=== PATIENT | female | born 1970 | race Caucasian/White ===

== ENCOUNTER → 2018-10-04 | Outpatient (CLI) | payer OTHER ==
--- NOTE | 2018-10-04 13:22 | P.GSHP ---
History of Present Illness H&P Date: 10/04/18 Chief Complaint: Mammographic abnormality left breast Fidelina is a 48-year-old white female who is status post a routine screening mammogram performed on 6519. Recommendation was for diagnostic left breast mammogram secondary to a faint nodular density centrally in the left breast measuring approximately 3 mm. [place] subsequently [place] [address] as well as an ultrasound of the left breast. The ultrasound did not show any lesion of concern. The nodularity did persist on the 3-D mammogram. The patient's last mammogram was in 2007. The patient has no history of any masses or lumps in her breasts. She has no history of any infection or trauma to her breast. She is not complaining of any pain in her breast. She is not complaining of any nipple discharge. Family history: 1. sister cervical cancer 2. father: kidney caner 3. paternal grandfather lung cancer Hormonal history: Menarche:12 , breast fed: none, first born at 17 periods: regular control pills: 1 year Hormones:none Surgical history: 1. Cholecystectomy 2. Emergency 3. Tubal ligation 4. Bilateral carpal tunnel Medical History: 1. CHF, follows with DR. Oh 2. TIA related to a migraine Social history: Smoke: Negative, stopped 4 years ago did smoke 1/2 PPD for 20 years Alcohol: Once a month Drugs: Negative - Constitutional Comment: hot flashes Constitutional: Reports sweats - EENT Comment: wears glasses Ears: deny: decreased hearing, tinnitus Ears, nose, mouth and throat: Reports headache - Breasts Breasts: bilateral: as per HPI - Cardiovascular Comment: CHF - Respiratory Respiratory: Denies cough, Denies 7 - Gastrointestinal Gastrointestinal: Denies abdominal pain, Denies diarrhea, Denies nausea, Denies vomiting - Genitourinary (Female) Genitourinary: Reports kidney stones, Denies dysuria, Denies hematuria - Menstruation Menstruation: Reports period normal - Musculoskeletal Musculoskeletal: Denies myalgias - Integumentary Integumentary: Denies pruritus, Denies rash - Neurological Comment: TIA Neurological: Denies numbness, Denies weakness - Psychiatric Psychiatric: Denies anxiety, Denies depression - Endocrine Endocrine: Reports weight change, Denies fatigue - Hematologic/Lymphatic Comment: none - Allergic/Immunologic Allergic/Immunologic: Reports as per HPI Past Medical History Past Medical History: CVA/TIA Additional Past Medical History / Comment(s): migraines History of Any Multi-Drug Resistant Organisms: None Reported Past Surgical History: Section, Cholecystectomy, Orthopedic Surgery, Tubal Ligation Additional Past Surgical History / Comment(s): Carpal Tunnel release bilaterally Past Anesthesia/Blood Transfusion Reactions: No Reported Reaction Past Psychological History: No Psychological Hx Reported Smoking Status: Former smoker Past Alcohol Use History: None Reported Past Drug Use History: None Reported Medications and Allergies Home Medications Medication Instructions Recorded Confirmed Type Carvedilol [Coreg] 12.5 mg PO BID-W/MEALS #180 tab 02/17/15 10/04/18 Rx Furosemide [Lasix] 20 mg PO DAILY #90 tab 02/17/15 10/04/18 Rx Nitroglycerin Sl Tabs [Nitrostat] 0.4 mg SUBLINGUAL Q5M PRN #25 tab 02/17/15 10/04/18 Rx Losartan Potassium 100 mg PO DAILY 10/04/18 10/04/18 History Omeprazole [PriLOSEC] 20 mg PO DAILY 10/04/18 10/04/18 History Spironolactone [Aldactone] 25 mg PO DAILY PRN 10/04/18 10/04/18 History Allergies Allergy/AdvReac Type Severity Reaction Status Date / Time aspirin AdvReac Nausea & Verified 02/13/15 13:25 Vomiting Surgical - Exam Vital Signs Temp Pulse Resp BP Pulse Ox 98.6 F 75 18 123/82 96 10/04/18 12:38 10/04/18 12:38 10/04/18 12:38 10/04/18 12:38 10/04/18 12:38 BMI 45.5 - General obese - Eyes normal ocular movement - ENT no hearing loss - Neck no masses, trachea midline - Respiratory normal respiratory effort, clear to auscultation - Cardiovascular Rhythm: regular Heart Sounds: normal: S1, S2 - Abdomen Abdomen: soft, non tender, no guarding, no rigid, no rebound - Integumentary normal turgor - Neurologic no disoriented, no combative - Musculoskeletal normal gait - Psychiatric oriented to time, oriented to person, oriented to place, speech is normal, memory intact Breast examination: Right breast: Multi-positional exam fibrocystic breast changes, no dominant mass or nodule of concern Right axilla: No adenopathy of concern Left breast: Multi-positional exam no dominant mass or nodule of concern Left axilla: No adenopathy of concern Results Mammogram and ultrasound results reviewed Assessment and Plan Assessment: Impression: 1. CHF, follows with DR. Oh 2. TIA related to a migraine 3. Mammographic abnormality left breast 4. Fibrocystic breast changes 5. Family history of cancer Plan: 1. 3-D stereotactic core biopsy at [facility] left breast 2. Follow-up after biopsy 3. Medical management of medical conditions Cc:
== END ==
DX: Z53.9 Procedure and treatment not carried out, unspecified reason (principal)

== ENCOUNTER → 2018-10-17 | Outpatient (CLI) | payer OTHER ==
[2018-10-17 09:56] VITALS: BP 142/91; PULSE 68; RESP 18; TEMP 98.2; BMI 45.5
--- NOTE | 2018-10-17 10:27 | P.PN ---
Subjective Progress Note Date: 10/17/18 Chief Complaint: Mammographic abnormality left breast Fidelina is a 48-year-old white female who is status post a routine screening mammogram performed on 6519. Recommendation was for diagnostic left breast mammogram secondary for a faint nodular density centrally in the left breast measuring approximately 3 mm. She subsequently [place] [address] as well as an ultrasound of the left breast. The ultrasound did not show any lesion of concern. The nodularity did persist on the 3-D mammogram. The patient's last mammogram was in 2007. The patient has no history of any masses or lumps in her breasts. She has no history of any infection or trauma to her breast. She is not complaining of any pain in her breast. She is not complaining of any nipple discharge. The patient had a stereotactic core biopsy performed and 8119. Pathology revealed mild fibrocystic change, no malignancy was identified in the material. Although the dictated report on the stereotactic biopsy specimen indicated calcifications were present medications were seen in the biopsy material pathologically. The needle core biopsies were composed primarily of adipose tissue was in the possibility of an intramammary lipoma. The patient has no complaints related to the procedure. Family history: 1. sister cervical cancer 2. father: kidney caner 3. paternal grandfather lung cancer Hormonal history: Menarche:12 , breast fed: none, first born at 17 periods: regular control pills: 1 year Hormones:none Surgical history: 1. Cholecystectomy 2. Emergency 3. Tubal ligation 4. Bilateral carpal tunnel Medical History: 1. CHF, follows with DR. Oh 2. TIA related to a migraine Social history: Smoke: Negative, stopped 4 years ago did smoke 1/2 PPD for 20 years Alcohol: Once a month Drugs: Negative - Constitutional Comment: hot flashes Constitutional: Reports sweats - EENT Comment: wears glasses Ears: deny: decreased hearing, tinnitus Ears, nose, mouth and throat: Reports headache - Breasts Breasts: bilateral: as per HPI - Cardiovascular Comment: CHF - Respiratory Respiratory: Denies cough, Denies SOB - Gastrointestinal Gastrointestinal: Denies abdominal pain, Denies diarrhea, Denies nausea, Denies vomiting - Genitourinary (Female) Genitourinary: Reports kidney stones, Denies dysuria, Denies hematuria - Menstruation Menstruation: Reports period normal - Musculoskeletal Musculoskeletal: Denies myalgias - Integumentary Integumentary: Denies pruritus, Denies rash - Neurological Comment: TIA Neurological: Denies numbness, Denies weakness - Psychiatric Psychiatric: Denies anxiety, Denies depression - Endocrine Endocrine: Reports weight change, Denies fatigue - Hematologic/Lymphatic Comment: none - Allergic/Immunologic Allergic/Immunologic: Reports as per HPI Past Medical History Past Medical History: CVA/TIA Additional Past Medical History / Comment(s): migraines History of Any Multi-Drug Resistant Organisms: None Reported Past Surgical History: Section, Cholecystectomy, Orthopedic Surgery, Tubal Ligation Additional Past Surgical History / Comment(s): Carpal Tunnel release bilaterally Past Anesthesia/Blood Transfusion Reactions: No Reported Reaction Past Psychological History: No Psychological Hx Reported Smoking Status: Former smoker Past Alcohol Use History: None Reported Past Drug Use History: None Reported Objective - Vital Signs Vital signs: Vital Signs Temp 98.2 F 10/17/18 09:53 Pulse 68 10/17/18 09:53 Resp 18 10/17/18 09:53 BP 142/91 10/17/18 09:53 Pulse Ox 97 10/17/18 09:53 Intake & Output 10/16/18 10/17/18 10/17/18 18:59 06:59 18:59 Weight 112.945 kg - Exam BMI 45.5 - Constitutional General appearance: Present: obese - EENT Eyes: Present: EOMI ENT: Present: hearing grossly normal - Neck Neck: Present: normal ROM - Respiratory Respiratory: bilateral: CTA - Cardiovascular Rhythm: regular Heart sounds: normal: S1, S2 - Integumentary Integumentary: Present: normal turgor - Musculoskeletal Musculoskeletal: Present: gait normal - Psychiatric Psychiatric: Present: A&O x's 3, appropriate affect, intact judgment & insight - Additional findings Additional findings: Left breast: Biopsy site clean and dry Evidence of hematoma No ecchymosis or infection Assessment and Plan Assessment: Impression: 1. CHF, follows with DR. Oh 2. TIA related to a migraine 3. Status post aortic a biopsy left breast, findings benign however no microcalcifications were seen pathologically although the reported to be in the biopsy specimen from the stereo biopsy report 3. Patient with no complications related to the biopsy Plan: 1. Review radiographs with radiologist 2. Depending on results after review with radiologist we did recommend needle local excisional biopsy of the area which was noted as no calcium was identified in the pathologic specimen repeat left breast mammogram in 4 months with physician exam at that time 3. Patient is anything of concern should call us immediately 4. Medical management of medical conditions CC: Dr. Dillon
== END | disposition home or self-care (01) ==
LOC: WWCWWP 09:44
PROVIDERS: ATTEND Surgery
DX: Z53.9 Procedure and treatment not carried out, unspecified reason (principal)

== ENCOUNTER → 2020-12-25 | Outpatient (CLI) | payer OTHER ==
[2020-12-25 18:24] LABS: African American GFR (CKD) 117.8 (60.0-200.0); Albumin 4.2 g/dL (3.8-4.9); Albumin/Globulin Ratio 1.83 (1.60-3.17); Anion Gap 14.2 mmol/L (4.00-12.00); BUN/Creat Ratio 13.39 Ratio (12.00-20.00); Calcium 8.9 mg/dL (8.7-10.3); Chol/HDL Ratio 2.77 Ratio; Globulin 2.3 g/dL (1.6-3.3); HDL Cholesterol 49.8 mg/dL (40.00-60.00); LDL Cholesterol,Calculated 69.1 mg/dL (0.0-131.0); Non-African American GFR(CKD) 101.7 (60.0-200.0); Total Bilirubin 0.4 mg/dL (0.30-1.20); Total Protein 6.5 g/dL (6.2-8.2); Triglycerides 95.7 mg/dL (0.00-149.00); VLDL Calculation 19.14 mg/dL (5.00-40.00)
== END | disposition home or self-care (01) ==
LOC: LABWHC1 10:09
PROVIDERS: ATTEND Nurse Practitioner Adult Health
DX: I10 Essential (primary) hypertension (principal); I42.8 Other cardiomyopathies
CPT/HCPCS: 36415; 80053; 80061

== ENCOUNTER → 2023-09-29 | Outpatient (CLI) | payer BC ==
[2023-09-29 12:53] LABS: Basophils # (A) 0.04 X 10*3/uL (0.00-0.10); Basophils % (A) 0.6 %; Eosinophils # (A) 0.24 X 10*3/uL (0.04-0.35); Eosinophils % (A) 3.6 %; HCT 41.2 % (37.2-46.3); HGB 13.8 g/dL (12.0-15.0); Lymphocytes # (A) 1.62 X 10*3/uL (0.90-5.00); Lymphocytes % (A) 24.3 %; MCH 29.6 pg (27.0-32.0); MCHC 33.5 g/dL (32.0-37.0); MCV 88.4 FL (80.0-97.0); Mean Platelet Volume 11.7 FL (9.5-12.2); Monocytes # (A) 0.36 X 10*3/uL (0.20-1.00); Monocytes % (A) 5.4 %; NRBC Per 100 WBC 0 X 10*3/uL (0.00-0.01); Neutrophils # (A) 4.38 X 10*3/uL (1.80-7.70); Neutrophils % (A) 65.7 %; Platelet Count 212 X 10*3/uL (140-440); RBC 4.66 X 10*6/uL (4.10-5.20); RDW 13.8 % (11.5-14.5); WBC 6.67 X 10*3/uL (4.50-10.00)
[2023-09-29 13:01] LABS: BUN/Creat Ratio 19.86 Ratio (12.00-20.00); Blood Urea Nitrogen 13.9 mg/dL (9.0-27.0); Calcium 8.6 mg/dL (8.7-10.3); Carbon Dioxide 18.7 mmol/L (21.6-31.8); Chloride 108 mmol/L (96-109); Glucose 149 mg/dL (70-110); Potassium 3.9 mmol/L (3.5-5.5); Sodium 141 mmol/L (135-145)
[2023-09-29 15:06] LABS: Appearance,Urine Cloudy (Clear); Bilirubin,Urine Negative (Negative); Blood,Urine Small (Negative); Color,Urine Yellow (Yellow); Ketones,Urine Negative (Negative); Nitrite,Urine Positive (Negative); PH, Urine 5.5; Urobilinogen,Urine 0.2 E.U./DL
[2023-09-29 15:35] LABS: Bacteria,Urine 3+ (None Seen); Calcium Oxalate Crystals,Urine Present (None Seen)
== END | disposition home or self-care (01) ==
LOC: LABPAT 08:55
PROVIDERS: ATTEND Urology
DX: Z01.812 Encounter for preprocedural laboratory examination (principal); N20.0 Calculus of kidney
CPT/HCPCS: 80048; 81001; 85025; 87077; 87086; 87186

== ENCOUNTER 2023-10-02 09:07 | Day surgery (SDC) | payer BC ==
[~2023-10-02 09:07] MED LIST: LIDOCAINE 1% (10MG/ML) FOR IV START INTRADERMA PRN
--- NOTE | 2023-10-02 09:38 | P.HPIHPCON ---
History of Present Illness H&P Date: 10/02/23 Chief Complaint: Right-sided renal stone This is a 53-year-old female with history of a 1.7 cm right-sided lower pole stone with extension into the renal pelvis. She is symptomatic from her stone. Option of right-sided PCNL versus staged ureteroscopy was discussed with her in detail. Risk and benefit of each approach were discussed. She agreed to proceed with right-sided staged ureteroscopy, aware of the risk which includes but not limited to bleeding, infection, injury to the ureter. Risk of anesthesia was also discussed. She understood all the risk and agreed to proceed Consent for Procedure: I have explained the operation/procedure to the patient, including the risks, benefits, side effects, alternative therapies (including not receiving the proposed treatment or service), the likelihood of the patient achieving his/her goals, and potential recuperation problems for the procedure/sedation/analgesia, as well as any blood products, if indicated. I also explained to the patient the risks, benefits and side effects of the alternatives, as well as the risks related to not receiving the proposed procedure, care, treatment, or services. Past Medical History Past Medical History: CVA/TIA Additional Past Medical History / Comment(s): migraines History of Any Multi-Drug Resistant Organisms: None Reported Past Surgical History: Section, Cholecystectomy, Orthopedic Surgery, Tubal Ligation Additional Past Surgical History / Comment(s): Carpal Tunnel release bilaterally Past Anesthesia/Blood Transfusion Reactions: No Reported Reaction Past Alcohol Use History: None Reported - Past Family History Sister(s) Family Medical History: Cancer Additional Family Medical History / Comment(s): uterine cancer Father Family Medical History: Cancer, Diabetes Mellitus Additional Family Medical History / Comment(s): renal cancer. paternal grandfather lung cancer Mother Family Medical History: Congestive Heart Failure (CHF) Medications and Allergies Home Medications Medication Instructions Recorded Confirmed Type Nitroglycerin Sl Tabs [Nitrostat] 0.4 mg SUBLINGUAL Q5M PRN #25 tab 02/17/15 09/27/23 Rx carvediloL [Coreg] 12.5 mg PO BID-W/MEALS #180 tab 02/17/15 09/27/23 Rx Losartan Potassium 100 mg PO QAM 10/04/18 09/27/23 History Omeprazole [PriLOSEC] 20 mg PO QAM 10/04/18 09/27/23 History Albuterol Inhaler [Ventolin Hfa 2 puff INHALATION QID PRN 09/27/23 09/27/23 History Inhaler] Furosemide [Lasix] 20 mg PO DAILY PRN 09/27/23 09/27/23 History Rimegepant Sulfate [Nurtec Odt] 75 mg PO DAILY PRN 09/27/23 09/27/23 History Topiramate 25 mg PO BID 09/27/23 09/27/23 History Allergies Allergy/AdvReac Type Severity Reaction Status Date / Time aspirin AdvReac Nausea & Verified 09/27/23 15:52 Vomiting Surgical - Exam - General no distress, moderate pain - Eyes normal ocular movement, no pale - ENT normal nares, normal mucosa - Respiratory normal expansion, normal respiratory effort - Abdomen Abdomen: soft, non tender - Psychiatric oriented to time, oriented to person, oriented to place Assessment and Plan Assessment: OR for right-sided ureteroscopy, millimeter lithotripsy, stone basketing and stent insertion
--- NOTE | 2023-10-02 09:43 | XR ---
EXAMINATION TYPE: XR KUB DATE OF EXAM: 10/02/2023 HISTORY: Pain Comparison: None.Single KUB is submitted for interpretation. Findings: Right renal calculi: 7.1 mm calculus lower pole right kidney. Right ureteral calculi: None Visualized. Left renal calculi: None Visualized. Left ureteral calculi: None Visualized. Pelvic calcifications: Phlebolith-like calcifications are present within the pelvis. Bowel gas pattern is unremarkable. No free air. No mass effects. IMPRESSION: 1. Right renal calculus.
[2023-10-02] MEDS: IV FLUID CONTINUATION 1,000 ML IV ONE ×2 (10:09→10:57)
[2023-10-02] MEDS: LACTATED RINGERS 1,000 ML IV SCH (10:09)
[2023-10-02] MEDS: ONDANSETRON 4 MG/2 ML VIAL IVP ONE (10:15)
[2023-10-02] MEDS: DEXAMETHASONE SOD PHOSPHATE 4 MG/ML 1 ML VIAL IVP STA (10:17)
[2023-10-02] MEDS ORDERED: PHENYLEPHRINE-0.9% NACL SYG 1,000 MCG/10 ML SYRINGE ONE (10:57)
[2023-10-02] MEDS ORDERED: LIDOCAINE 1% INJ 10MG/ML (20 ML MDV) ONE (10:57)
[2023-10-02] MEDS ORDERED: PROPOFOL 10 MG/ML 20 ML VIAL IV ONE (10:57)
[2023-10-02] MEDS ORDERED: SUCCINYLCHOLINE CHLORIDE 200 MG/10 ML VIAL IV ONE (10:57)
[2023-10-02] MEDS ORDERED: fentaNYL (PF) 50 MCG/ML 2 ML AMP ONE (10:57)
[2023-10-02] MEDS ORDERED: MIDAZOLAM 2 MG/2 ML VIAL ONE (10:57)
[2023-10-02 12:32] VITALS: RESP 16; TEMP 96.9
--- NOTE | 2023-10-02 12:35 | P.OP ---
Date of Procedure: 10/02/23 Preoperative Diagnosis: Right renal stone Postoperative Diagnosis: Same Procedure(s) Performed: Cystoscopy, right ureteroscopy, holmium laser lithotripsy, stone basketing, incision of a calyceal diverticulum and stent insertion Implants: 6 Citizen [place] by 24 cm stent in the right ureter Anesthesia: TYSON Surgeon: Elliot Vasques Estimated Blood Loss (ml): 5 Pathology: other (Right renal stone) Condition: stable Disposition: PACU Indications for Procedure: This is a 53-year-old female with history of a 1.7 cm right-sided lower pole stone with extension into the renal pelvis. She is symptomatic from her stone. Option of right-sided PCNL versus staged ureteroscopy was discussed with her in detail. Risk and benefit of each approach were discussed. She agreed to proceed with right-sided staged ureteroscopy, aware of the risk which includes but not limited to bleeding, infection, injury to the ureter. Risk of anesthesia was also discussed. She understood all the risk and agreed to proceed Operative Findings: 3 large stones in the lower pole, an additional stone within the lower pole diverticulum, was unable to access it using the flexible ureteroscope Description of Procedure: Patient brought to the operating room, general anesthesia was induced she was prepped and draped in sterile fashion placed in a dorsolithotomy position cystoscopy with a 21 Citizen [place] sheath was inserted per urethra, cystoscopy was performed showed no abnormality within the bladder. Next the right ureter orifice was intubated with a sensor wire. The wire was advanced under fluoroscopy into the renal pelvis. Next under fluoroscopy 1113 Citizen [place] access sheath was passed over the wire and into the proximal ureter. Next a flexible ureteroscope was inserted through the access sheath. Renoscopy was performed which showed multiple large stones within the lower pole. Using the holmium laser the stones were dusted, at this point an additional stone was seen within a diverticulum, the diverticulum was located along the lower pole using the holmium laser I did incise the diverticular neck, at this point the flexible ureteroscope was inserted past the diverticular neck and into the diverticulum. Renoscopy was performed which showed a dilated diverticulum. The stone was at the lowest most portion of the diverticulum, multiple attempts were made to try to access the stone but I was unable to flex the scope enough to get access to the stone within the diverticulum. At this time repeat renoscopy showed no sizable fragments or injury to the kidney, on fluoroscopy there was no radiopaque densities except for what was within the lower pole diverticulum. But of note there was significant dust secondary to lithotripsy. Pullback ureteroscopy was performed. No injury to the ureter or any ureteral stones as the ureteroscope was withdrawn a sensor wire was advanced through. Next ureteral stent was passed over the wire, the proximal curl visualized on fluoroscopy and the distal curl was visualized using the cystoscope. The bladder was emptied at the end of the case. At this point patient will follow- up for second stage ureteroscopy and stent removal in 1 week, will be attempted to see if we can access the stone at that time. End of dictation
[2023-10-02] MEDS: HYDROmorphone 0.5 MG/0.5 ML SYRINGE IVP PRN (13:26)
[2023-10-02 13:50] VITALS: BP 147/80; PULSE 62
--- NOTE | 2023-10-02 14:26 | FL ---
Fluoroscopy History: RIGHT RENAL STONE Right renal stone 41 sec .[id number] DAP
== END 2023-10-02 14:08 | disposition home or self-care (01) ==
LOC: OR 09:07
PROVIDERS: ATTEND Urology
DX: N20.0 Calculus of kidney (principal); I50.9 Heart failure, unspecified; G43.909 Migraine, unspecified, not intractable, without status migrainosus; Z80.51 Family history of malignant neoplasm of kidney; Z88.6 Allergy status to analgesic agent; Z87.891 Personal history of nicotine dependence; Z79.899 Other long term (current) drug therapy
CPT/HCPCS: 81025; 82365; 74018; 52356; C2625; C1769; J2250; J0330; J1100; J0690; J2405; J2001; J3010; J2704; J1170; J2371

== ENCOUNTER 2023-10-09 08:06 | Day surgery (SDC) | payer BC ==
[2023-10-05 13:46] VITALS: BMI 43.3
[~2023-10-09 08:06] MED LIST changes: +GENTAMICIN 120 MG in SODIUM CHLORIDE 0.9% 100 ML IVPB PRN; +HYDROmorphone 0.5 MG/0.5 ML SYRINGE IVP PRN; -LIDOCAINE 1% (10MG/ML) FOR IV START INTRADERMA PRN; +MIDAZOLAM 2 MG/2 ML VIAL IV PRN; +SCOPOLAMINE 1 MG/72 HR PATCH TRANSDERM ONE
--- NOTE | 2023-10-09 08:21 | XR ---
EXAMINATION TYPE: XR KUB DATE OF EXAM: 10/09/2023 8:15 AM CLINICAL INDICATION:Female, 53 years old with history of N20.0 Right Renal Stone; [facility] COMPARISON: 10/01/2023. TECHNIQUE: One radiographic view of the abdomen was obtained. FINDINGS: The bowel gas pattern is nonspecific without dilated loops of small or large bowel. . Fecal material and gas are demonstrated throughout the colon and rectum. There is no evidence for organomegaly or pneumoperitoneum. The osseous structures are intact. Right ureteral stent with superior and inferior pigtails in appropriate position. No renal calculi measuri ng up to 9 mm. Right distal renal calculus versus pelvic phlebolith measuring 4 mm. IMPRESSION: 1. Right ureteral stent in place. 2. Right renal calculi. 3. Nonspecific bowel gas pattern without radiographic evidence for acute process.
[2023-10-09] MEDS: IV FLUID CONTINUATION 1,000 ML IV ONE (08:22)
[2023-10-09 08:28] VITALS: RESP 16; TEMP 97.2
[2023-10-09] MEDS: ONDANSETRON 4 MG/2 ML VIAL IVP ONE (08:45)
[2023-10-09] MEDS: DEXAMETHASONE SOD PHOSPHATE 4 MG/ML 1 ML VIAL IV ONE (08:45)
[2023-10-09] MEDS: LACTATED RINGERS 1,000 ML IV SCH (08:46)
[2023-10-09] MEDS: LIDOCAINE 1% (10MG/ML) FOR IV START SQ ONE (08:55)
--- NOTE | 2023-10-09 09:33 | P.HPIHPCON ---
History of Present Illness H&P Date: 10/09/23 Chief Complaint: Right renal stone This is a 53-year-old female with history of a 1.7 cm right-sided renal stone, underwent stage I ureteroscopy last week, presents today for stage II ureteroscopy. KUB does show some residual stone in the kidney. Discussed with her risk of surgery which include but not limited to bleeding, infection, injury to the ureter Consent for Procedure: I have explained the operation/procedure to the patient, including the risks, benefits, side effects, alternative therapies (including not receiving the proposed treatment or service), the likelihood of the patient achieving his/her goals, and potential recuperation problems for the procedure/sedation/analgesia, as well as any blood products, if indicated. I also explained to the patient the risks, benefits and side effects of the alternatives, as well as the risks related to not receiving the proposed procedure, care, treatment, or services. Past Medical History Past Medical History: CVA/TIA Additional Past Medical History / Comment(s): migraines History of Any Multi-Drug Resistant Organisms: None Reported Past Surgical History: Section, Cholecystectomy, Orthopedic Surgery, Tubal Ligation Additional Past Surgical History / Comment(s): Carpal Tunnel release bilaterally Past Anesthesia/Blood Transfusion Reactions: No Reported Reaction Smoking Status: Former smoker - Past Family History Sister(s) Family Medical History: Cancer Additional Family Medical History / Comment(s): uterine cancer Father Family Medical History: Cancer, Diabetes Mellitus Additional Family Medical History / Comment(s): renal cancer. paternal grandfather lung cancer Mother Family Medical History: Congestive Heart Failure (CHF) Medications and Allergies Home Medications Medication Instructions Recorded Confirmed Type Nitroglycerin Sl Tabs [Nitrostat] 0.4 mg SUBLINGUAL Q5M PRN #25 tab 02/17/15 10/09/23 Rx carvediloL [Coreg] 12.5 mg PO BID-W/MEALS #180 tab 02/17/15 10/09/23 Rx Losartan Potassium 100 mg PO QAM 10/04/18 10/09/23 History Omeprazole [PriLOSEC] 20 mg PO QAM 10/04/18 10/09/23 History Albuterol Inhaler [Ventolin Hfa 2 puff INHALATION QID PRN 09/27/23 10/09/23 History Inhaler] Furosemide [Lasix] 20 mg PO DAILY PRN 09/27/23 10/09/23 History Rimegepant Sulfate [Nurtec Odt] 75 mg PO DAILY PRN 09/27/23 10/09/23 History Topiramate 25 mg PO BID 09/27/23 10/09/23 History Ketorolac [Toradol] 10 mg PO Q6HR PRN #15 tab 10/02/23 10/09/23 Rx Allergies Allergy/AdvReac Type Severity Reaction Status Date / Time aspirin AdvReac Nausea & Verified 10/09/23 08:58 Vomiting Surgical - Exam Vital Signs Temp Pulse Resp BP Pulse Ox 97.2 F L 69 16 168/86 98 10/09/23 08:26 10/09/23 08:26 10/09/23 08:26 10/09/23 08:26 10/09/23 08:26 - General no distress, no pain - Eyes normal ocular movement, no pale - ENT normal nares, normal mucosa - Respiratory normal expansion, normal respiratory effort - Abdomen Abdomen: soft, non tender Assessment and Plan Assessment: OR for right-sided ureteroscopy, millimeter lithotripsy, stone basketing and stent removal
[2023-10-09] MEDS ORDERED: NEOSTIGMINE 1 MG/ML 10 ML VIAL ONE (09:57)
[2023-10-09] MEDS ORDERED: PROPOFOL 10 MG/ML 20 ML VIAL IV ONE (09:57)
[2023-10-09] MEDS ORDERED: LIDOCAINE 1% INJ 10MG/ML (20 ML MDV) ONE (09:57)
[2023-10-09] MEDS ORDERED: ROCURONIUM 10 MG/ML (5 ML VIAL) IV ONE (09:57)
[2023-10-09] MEDS ORDERED: MIDAZOLAM 2 MG/2 ML VIAL ONE (09:57)
[2023-10-09] MEDS ORDERED: fentaNYL (PF) 50 MCG/ML 2 ML AMP ONE (09:57)
[2023-10-09] MEDS ORDERED: GLYCOPYRROLATE 0.2 MG/ML 2 ML VIAL ONE (09:57)
[2023-10-09] MEDS ORDERED: SUCCINYLCHOLINE CHLORIDE 200 MG/10 ML VIAL IV ONE (09:57)
--- NOTE | 2023-10-09 11:18 | P.OP ---
Date of Procedure: 10/09/23 Preoperative Diagnosis: Right renal stones Postoperative Diagnosis: Same Procedure(s) Performed: Cystoscopy, right ureteroscopy, holmium laser lithotripsy stone basketing and stent removal Implants: None Anesthesia: HERMILAA Surgeon: Elliot Vasques Estimated Blood Loss (ml): 5 Pathology: other (right renal stone) Condition: stable Disposition: PACU Indications for Procedure: This is a 53-year-old female with history of a 1.7 cm right-sided renal stone, underwent stage I ureteroscopy last week, presents today for stage II ureteroscopy. KUB does show some residual stone in the kidney. Discussed with her risk of surgery which include but not limited to bleeding, infection, injury to the ureter Operative Findings: 2 radiopaque stones in the lower pole, I was able to fragment one of them and remove, additional stone was embedded deep in the lower pole is unable to remove the stone Description of Procedure: Patient brought to the operating room, general anesthesia was induced. She was prepped and draped in sterile fashion and placed in dorsolithotomy position. Cystoscopy fitted with a 21 [place] sheath was inserted per urethra, cystoscopy was performed which showed no abnormality within the bladder. Attention was then carried to the right ureteral orifice, the stent was grasped and removed intact. Next a semirigid ureteroscope was inserted per urethra advanced up the right ureteral orifice, the scope was advanced all the way up to the proximal ureter which showed no stones, pullback ureteroscopy was performed showed no injury to the ureter or any ureteral stones, as ureteroscope was withdrawn a sensor wire was advanced through. Next an 1113 [place] access sheath was passed over the wire into the proximal ureter. Next flexibile ureteroscope was inserted through the access sheath, renoscopy was performed showed stones in the lower pole that were both radiopaque, I was able to access the initial stone, using the holmium laser the stone was fragmented, stone fragments were removed using a stone basket. This time there was an additional radiopaque density that was further down in the lower pole of the stone did appear to be within a diverticulum, I attempted to flex the scope to access the stone but was not unable to visualize, multiple attempts were made. The piece measured approximately 4 mm and it was radiopaque. At this time repeat renoscopy showed no additional radiopaque densities or any stones within the collecting system. Pullback ureteroscopy was performed showed no injury to the ureter and ureteral stone. The bladder was emptied at the end of the case. Patient tolerated procedure was taken to recovery in stable condition
[2023-10-09 11:55] VITALS: BP 148/85; PULSE 50
--- NOTE | 2023-10-09 12:36 | FL ---
EXAMINATION TYPE: FL guidance operating room Intraoperative/procedural fluoroscopic services were pro vided. Total fluoroscopy time is 11.0 seconds with a total of 3 submitted images to PACS. Please see the operative/procedural note for further details. DAP: [id number] [id number]
== END 2023-10-09 12:12 | disposition home or self-care (01) ==
LOC: OR 08:06
PROVIDERS: ATTEND Urology
DX: N20.0 Calculus of kidney (principal); Z96.0 Presence of urogenital implants; I11.0 Hypertensive heart disease with heart failure; I50.9 Heart failure, unspecified; Z87.891 Personal history of nicotine dependence; Z80.51 Family history of malignant neoplasm of kidney; Z88.6 Allergy status to analgesic agent; Z79.899 Other long term (current) drug therapy
CPT/HCPCS: 81025; 82365; 74018; 52353; C1769; J2250; J0330; J1100; J2710; J0690; J2405; J2001; J3010; J2704; J1596